=== PATIENT | female | born 1940 | race Two or more races ===

== ENCOUNTER 2016-12-01 08:40 | Day surgery (SDC) | payer MEDICARE, BC ==
[~2016-12-01 08:40] MED LIST: CEFAZOLIN 1 G VIAL MC ONE; KETOROLAC TROMETHAMINE 30 MG INJ IM ONE; LIDOCAINE-MPF 2% 5 ML VIAL MC ONE; PROPOFOL 200 MG/20 ML BOTTLE IV ONE
[2016-12-01] MEDS ORDERED: POLYMYXIN B SULFATE 500,000 UNITS, BACITRACIN 50,000 UNITS, NORMAL SALINE 20 ML MC ONE ×3 (09:45)
[2016-12-01 09:49] LABS: *BILIRUBIN,URIN NEGATIVE (NEGATIVE); *BLOOD, URINE Trace-intact (NEGATIVE); *CLARITY,URINE CLEAR (CLEAR); *COLOR,URINE LIGHT YELLOW (YELLOW); *KETONES,URINE NEGATIVE (NEGATIVE); *PROTEIN,URINE NEGATIVE (NEGATIVE); *UROBILINOGEN,URINE 0.2 E.U./dl (NORMAL); LEUKOCYTE ESTERASE ,URINE NEGATIVE (NEGATIVE); NITRITE, URINE NEGATIVE (NEGATIVE); UGLUCOSE NEGATIVE (NEGATIVE)
[2016-12-01 10:01] LABS: BACTERIA,URINE NONE SEEN /HPF (NONE SEEN); RBC,URINE 0-3 /HPF (0-3); WBC,URINE 0-3 /HPF (0-3)
[2016-12-01 10:02] LABS: SQUAMOUS EPITHELIAL CELL,UR FEW /HPF (NONE SEEN)
[2016-12-01] MEDS ORDERED: MIDAZOLAM HCL 2 MG/2 ML VIAL ONE (11:25)
[2016-12-01] MEDS ORDERED: FENTANYL CITRATE 100 MCG/2 ML AMPUL ONE (11:25)
[2016-12-01] MEDS ORDERED: SEVOFLURANE 250 ML BOTTLE ONE (11:28)
[2016-12-01] MEDS ORDERED: BUPIVACAINE PF 0.5% 30 ML VIAL ONE (11:39)
== END 2016-12-01 14:13 | disposition home or self-care (01) ==
LOC: DS 08:40
PROVIDERS: ATTEND Orthopaedic Surgery
DX: G56.02 Carpal tunnel syndrome, left upper limb (principal); E03.9 Hypothyroidism, unspecified
CPT/HCPCS: A4649; A4663; J0690; J1885; J2250; J3010; J3490; J7120